=== PATIENT | male | born 1990 | race Caucasian/White ===

== ENCOUNTER 2020-11-20 18:17 | Emergency (ER) | payer OTHER ==
[2020-11-20 18:36] VITALS: BP 117/90; PULSE 63; TEMP 99; BMI 32.8
== END 2020-11-20 18:36 | disposition home or self-care (01) ==
LOC: FER 18:17
DX: Z77.21 Contact with and (suspected) exposure to potentially hazardous body fluids (principal)
CPT/HCPCS: 99282-25

== ENCOUNTER 2021-09-06 23:20 | Emergency (ER) | payer OTHER ==
[2021-09-06 23:27] VITALS: BP 137/104; PULSE 112; TEMP 98.4; BMI 33.9
== END 2021-09-06 23:59 | disposition home or self-care (01) ==
LOC: FER 23:20
DX: S83.91XA Sprain of unspecified site of right knee, initial encounter (principal); W01.0XXA Fall on same level from slipping, tripping and stumbling without subsequent striking against object, initial encounter
CPT/HCPCS: 73562-TC-RT-FY; 99283-25

== ENCOUNTER 2022-02-19 13:07 | Emergency (ER) | payer OTHER ==
[2022-02-19 13:15] VITALS: BP 123/91; PULSE 80; RESP 16; TEMP 99; BMI 32.9
== END 2022-02-19 13:29 | disposition home or self-care (01) ==
LOC: FER 13:07
DX: Z77.21 Contact with and (suspected) exposure to potentially hazardous body fluids (principal)
CPT/HCPCS: 99281-25

== ENCOUNTER 2022-03-25 10:58 | Emergency (ER) | payer OTHER ==
[2022-03-25] MEDS ORDERED: KETOROLAC TROMETHAMINE 30 MG/1 ML VIAL IM ONE (11:02)
[2022-03-25] MEDS ORDERED: METHOCARBAMOL 500 MG TABLET PO ONE (11:02)
[2022-03-25] MEDS ORDERED: METHOCARBAMOL 500 MG TABLET ONE (11:09)
[2022-03-25] MEDS ORDERED: KETOROLAC TROMETHAMINE 30 MG/1 ML VIAL ONE (11:10)
[2022-03-25 11:12] VITALS: BP 126/96; PULSE 103; RESP 18; TEMP 98; BMI 32.8
== END 2022-03-25 11:22 | disposition home or self-care (01) ==
LOC: FER 10:58
PROC: 3E0233Z Introduction of Anti-inflammatory into Muscle, Percutaneous Approach (ICD-10-PCS; principal; 2022-03-25)
DX: M54.50 Low back pain, unspecified (principal)
CPT/HCPCS: 99283-25

== ENCOUNTER 2022-03-26 17:34 | Emergency (ER) | payer OTHER ==
[2022-03-26] MEDS ORDERED: LIDOCAINE 5% TOPICAL PATCH TP ONE (17:40)
[2022-03-26] MEDS ORDERED: ACETAMINOPHEN 325 MG TABLET (FP) PO ONE (17:40)
[2022-03-26 17:47] VITALS: BP 119/79; PULSE 82; RESP 18; TEMP 98.2; BMI 32.8
[2022-03-26] MEDS ORDERED: ACETAMINOPHEN 325 MG TABLET (FP) ONE (17:48)
[2022-03-26] MEDS ORDERED: LIDOCAINE 5% TOPICAL PATCH ONE (17:49)
[2022-03-26] MEDS ORDERED: LIDOCAINE PATCH REMOVAL MC SCH (22:00)
== END 2022-03-26 18:09 | disposition home or self-care (01) ==
LOC: FER 17:34
DX: M54.50 Low back pain, unspecified (principal)
CPT/HCPCS: 99283-25

== ENCOUNTER 2023-11-06 20:33 | Emergency (ER) | payer OTHER ==
[2023-11-06 20:45] VITALS: BP 125/88; PULSE 88; RESP 16; TEMP 97.8; BMI 33.9
[2023-11-06] MEDS ORDERED: IBUPROFEN 600 MG TABLET (FP) PO ONE (20:51)
[2023-11-06] MEDS: IBUPROFEN 600 MG TABLET (FP) PO ONE (20:55)
== END 2023-11-06 21:12 | disposition home or self-care (01) ==
LOC: FER 20:33
DX: S49.91XA Unspecified injury of right shoulder and upper arm, initial encounter (principal); M25.511 Pain in right shoulder; X58.XXXA Exposure to other specified factors, initial encounter
CPT/HCPCS: 71045-TC-FY; 73030-TC-RT-FY; 99283-25

== ENCOUNTER 2024-01-14 04:41 | Emergency (ER) | payer OTHER ==
[2024-01-14 04:47] VITALS: BP 122/92; PULSE 88; RESP 18; TEMP 97.5; BMI 33.0
[2024-01-14] MEDS ORDERED: IBUPROFEN 600 MG TABLET (FP) PO ONE (05:41)
[2024-01-14] MEDS: IBUPROFEN 600 MG TABLET (FP) PO ONE (05:52)
== END 2024-01-14 06:27 | disposition home or self-care (01) ==
LOC: FER 04:41
DX: S69.92XA Unspecified injury of left wrist, hand and finger(s), initial encounter (principal); M54.6 Pain in thoracic spine; T75.4XXA Electrocution, initial encounter; W86.8XXA Exposure to other electric current, initial encounter; Y35.811A Legal intervention involving manhandling, law enforcement official injured, initial encounter
CPT/HCPCS: 99283-25